=== PATIENT | male | born 1980 | race Caucasian/White ===

== ENCOUNTER → 2016-05-03 | Outpatient (CLI) | payer OTHER ==
[2016-05-04 09:48] LABS: CONTROL LINE INT CTR LINE PRESENT; HIV SCRN NEGATIVE (NEGATIVE); HIV SCRN1 NEGATIVE (NEGATIVE)
== END ==
LOC: M LAB 15:10
PROVIDERS: ATTEND Internal Medicine Infectious Disease
DX: Z77.21 Contact with and (suspected) exposure to potentially hazardous body fluids (principal)

== ENCOUNTER 2016-05-06 18:44 | Emergency (ER) | payer OTHER ==
--- NOTE | 2016-05-06 20:34 | EDDOCDS ---
Physician Documentation [facility] Name: Jc Mueller Age: 36 yrs Sex: Male : 1980 Arrival Date: 05/06/2016 Time: 18:44 Bed I8 / 16 Private MD: [facility] Disposition: 05/06/16 20:24 Discharged to Home/Self Care. Impression: Contusion of right knee. - Condition is Stable. - Medication Reconciliation, Local Pharmacy Hours form. - Follow up: [facility]; When: Call to arrange an appointment; Reason: Recheck today's complaints. - Problem is new. - Symptoms have improved. Historical: - Allergies: SULFA (SULFONAMIDES); - Home Meds: 1. Plavix 75 mg Oral tab 1 tab once daily (Last dose: 05/05/2016) 2. atorvastatin 20 mg oral tab 1 tab once daily 3. aspirin 81 mg Oral TbEC 1 tab once daily 4. Lipitor 10 mg Oral tab 1 tab once daily - PMHx: [place]; back injury while [place]; Hypertension; - PSHx: none; - Social history: Smoking status: Patient uses tobacco products, current every day smoker. No barriers to communication noted, The patient speaks fluent Syriac. - Family history: Not pertinent. - : The pt / caregiver states he / she is on anticoagulants: Plavix. Home medication list is obtained from the patient. - Exposure Risk Screening:: None identified. Vital Signs: 05/06 18:46 BP 161 / 96 RA Sitting (auto/lg); Pulse 99; Resp 18; Temp 97.3(O); Pulse Ox 97% on R/A; rs6 Weight 79.38 kg / 175 lbs (R); Height 5 ft. 7 in. (170.18 cm) (R); Pain 4/10; 18:46 Body Mass Index 27.41 (79.38 kg, 170.18 cm) rs6 MDM: 19:50 Knee, Complete Ordered. EDMS Signatures: Dispatcher [employer] EDRosaura Hadley, RN RN Derek Rodriguez DO DO cs11 Valentina Meza RN RN ms18 MTDD
--- NOTE | 2016-05-06 20:34 | EDDOCDS ---
Nurse's Notes [facility] Name: Jc Mueller Age: 36 yrs Sex: Male : 1980 Arrival Date: 05/06/2016 Time: 18:44 Bed I8 / 16 Private MD: [facility] [place] Diagnosis: Contusion of right knee Presentation: 05/06 18:48 Presenting complaint: Patient states: that he was chasing a person and [place] [place]. Pt report pain R knee and R hand. Adult Sepsis Screening: The patient does not have new or worsening altered mentation. Patient's respiratory rate is less than 22. Systolic blood pressure is greater than 100. Patient has a qSOFA score of 0- Negative Sepsis Screen. Suicide/Homicide risk assessment- the patient denies having any suicidal and/or homicidal ideations and does not present with any other emotional, behavioral or mental health complaints. 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 Transition of care: patient was not received from another setting of care. 18:48 Acuity: DOMINIQUE Level 4 ms18 18:48 Method Of Arrival: Walkin/Carried/Asstd ms18 Triage Assessment: 18:50 General: Appears in no apparent distress, comfortable, Behavior is appropriate for age, ms18 cooperative. Pain: Location: right knee Pain currently is 4 out of 10 on a pain scale. HIV screening NA for this visit Offered previously. Neurological: No deficits noted. Respiratory: No deficits noted. Derm: Skin is pink, warm & dry. Musculoskeletal: Range of motion intact in all extremities. Historical: - Allergies: SULFA (SULFONAMIDES); - Home Meds: 1. Plavix 75 mg Oral tab 1 tab once daily (Last dose: 05/05/2016) 2. atorvastatin 20 mg oral tab 1 tab once daily 3. aspirin 81 mg Oral TbEC 1 tab once daily 4. Lipitor 10 mg Oral tab 1 tab once daily - PMHx: [place]; [place] injury [place]; Hypertension; - PSHx: none; - Social history: Smoking status: Patient uses tobacco products, current every day smoker. No barriers to communication noted, The patient speaks fluent Vietnamese. - Family history: Not pertinent. - : The pt / caregiver states he / she is on anticoagulants: Plavix. Home medication list is obtained from the patient. - Exposure Risk Screening:: None identified. Screenin:26 Screening information is obtained from the patient. Fall risk: No risks identified. mcp Assistance ADL's: requires no assistance with activities of daily living. Abuse/DV Screen: The patient / caregiver reports he/she is: not in a situation that causes fear, pain or injury. Nutritional screening: No deficits noted. Advance Directives: There is no active DNR order. home support is adequate. Assessment: 20:25 General: Appears uncomfortable, Behavior is cooperative. Pain: Location: right hand and mcp right leg Pain currently is 6 out of 10 on a pain scale. Neurological: No deficits noted. Respiratory: Airway is patent Respiratory effort is even, unlabored. Derm: Skin is pink, warm & dry. Musculoskeletal: Circulation, motion, and sensation intact. Injury Description: Abrasion sustained to right knee is bleeding. Vital Signs: 18:46 BP 161 / 96 RA Sitting (auto/lg); Pulse 99; Resp 18; Temp 97.3(O); Pulse Ox 97% on R/A; rs6 Weight 79.38 kg (R); Height 5 ft. 7 in. (170.18 cm) (R); Pain 4/10; 18:46 Body Mass Index 27.41 (79.38 kg, 170.18 cm) [facility] Vitals: 18:46 Log In Time: May 06, 2016 at 18:46. [facility] ED Course: 18:46 Patient visited by Kate Miller PCA. rs6 18:46 [facility] is Private Physician. rs6 18:46 Patient moved to Waiting rs6 18:47 Patient visited by Kate Miller PCA. rs6 18:47 Patient moved to Pre RCE rs6 18:48 Triage Initiated ms18 19:45 Derek Cummins DO is Attending Physician. cs11 19:45 Patient moved to I8 / 16 jb5 19:46 Patient visited by Derek Cummins DO. cs11 20:23 [facility] is Referral Physician. cs11 20:26 No IV's were initiated during this patient's visit. No procedures done that require mcp assistance. Wound care to abrasion, located on right knee was cleaned with soap and water, dressed with Neosporin, band aid, Patient tolerated well. 20:27 Patient visited by Rosaura Ha RN. [facility] 20:27 The patient / caregiver is instructed regarding the plan of care and ED course. Patient mcp has correct armband on for positive identification. Bed in low position. Call light in reach. Order Results: There are currently no results for this order. Outcome: 20:24 Discharge ordered by Provider. cs11 20:32 Discharge Assessment: patient administered narcotics - no. The following High Risk [facility] Discharge criteria are identified: None. Discharged to home ambulatory. Condition: stable. Discharge instructions given to patient, Instructed on discharge instructions, follow up and referral plans. Demonstrated understanding of instructions, Pt was receptive of discharge instructions/ teaching. No special radiology studies were completed. Property sent home with patient. 20:33 Patient left the ED. [facility] Signatures: Rosaura Ha, RN RN Shelia Lopez, TOWER EQUIPMENT INSTALLER TOWER EQUIPMENT INSTALLER jb5 Derek Cummins, DO cs11 Valentina Meza RN RN ms18 Kate Miller, TOWER EQUIPMENT INSTALLER TOWER EQUIPMENT INSTALLER rs6 MTDD
--- NOTE | 2016-05-07 08:25 | REP ---
RIGHT KNEE SERIES: Five views. HISTORY: Trauma. FINDINGS: Five views of the right knee demonstrate soft tissue swelling along the course of the patellar tendon on lateral radiograph. No fracture, subluxation or joint effusion is seen. Clothing artifact is noted over the distal thigh. IMPRESSION: Soft-tissue swelling about the patellar tendon. Otherwise negative right knee radiographs. Signed by Kwasi Riley MD 05/07/2016 10:06 A
--- NOTE | 2016-05-08 21:34 | EDDOCDS ---
Nurse's Notes [facility] Name: Jc Mueller Age: 36 yrs Sex: Male : 1980 Arrival Date: 05/06/2016 Time: 18:44 Bed I8 / 16 Private MD: [facility], [place] Diagnosis: Contusion of right knee Presentation: 05/06 18:48 Presenting complaint: Patient states: that he was chasing a person and [place] [place]. Pt report pain R knee and R hand. Adult Sepsis Screening: The patient does not have new or worsening altered mentation. Patient's respiratory rate is less than 22. Systolic blood pressure is greater than 100. Patient has a qSOFA score of 0- Negative Sepsis Screen. Suicide/Homicide risk assessment- the patient denies having any suicidal and/or homicidal ideations and does not present with any other emotional, behavioral or mental health complaints. Status: Patient is not a public service representative or dependent. Transition of care: patient was not received from another setting of care. 18:48 Acuity: DOMINIQUE Level 4 ms18 18:48 Method Of Arrival: Walkin/Carried/Asstd ms18 Triage Assessment: 18:50 General: Appears in no apparent distress, comfortable, Behavior is appropriate for age, ms18 cooperative. Pain: Location: right knee Pain currently is 4 out of 10 on a pain scale. HIV screening NA for this visit Offered previously. Neurological: No deficits noted. Respiratory: No deficits noted. Derm: Skin is pink, warm & dry. Musculoskeletal: Range of motion intact in all extremities. Historical: - Allergies: SULFA (SULFONAMIDES); - Home Meds: 1. Plavix 75 mg Oral tab 1 tab once daily (Last dose: 05/05/2016) 2. atorvastatin 20 mg oral tab 1 tab once daily 3. aspirin 81 mg Oral TbEC 1 tab once daily 4. Lipitor 10 mg Oral tab 1 tab once daily - PMHx: [place]; back injury while [place]; Hypertension; - PSHx: none; - Social history: Smoking status: Patient uses tobacco products, current every day smoker. No barriers to communication noted, The patient speaks fluent Yakut. - Family history: Not pertinent. - : The pt / caregiver states he / she is on anticoagulants: Plavix. Home medication list is obtained from the patient. - Exposure Risk Screening:: None identified. Screenin:26 Screening information is obtained from the patient. Fall risk: No risks identified. mcp Assistance ADL's: requires no assistance with activities of daily living. Abuse/DV Screen: The patient / caregiver reports he/she is: not in a situation that causes fear, pain or injury. Nutritional screening: No deficits noted. Advance Directives: There is no active DNR order. home support is adequate. Assessment: 20:25 General: Appears uncomfortable, Behavior is cooperative. Pain: Location: right hand and mcp right leg Pain currently is 6 out of 10 on a pain scale. Neurological: No deficits noted. Respiratory: Airway is patent Respiratory effort is even, unlabored. Derm: Skin is pink, warm & dry. Musculoskeletal: Circulation, motion, and sensation intact. Injury Description: Abrasion sustained to right knee is bleeding. Vital Signs: 18:46 BP 161 / 96 RA Sitting (auto/lg); Pulse 99; Resp 18; Temp 97.3(O); Pulse Ox 97% on R/A; rs6 Weight 79.38 kg (R); Height 5 ft. 7 in. (170.18 cm) (R); Pain 4/10; 18:46 Body Mass Index 27.41 (79.38 kg, 170.18 cm) [facility] Vitals: 18:46 Log In Time: May 06, 2016 at 18:46. [facility] ED Course: 18:46 Patient visited by Kate Miller PCA. rs6 18:46 [facility] is Private Physician. rs6 18:46 Patient moved to Waiting rs6 18:47 Patient visited by Kate Miller PCA. rs6 18:47 Patient moved to Pre RCE rs6 18:48 Triage Initiated ms18 19:45 Derek Cummins DO is Attending Physician. cs11 19:45 Patient moved to I8 / 16 jb5 19:46 Patient visited by Derek Cummins DO. cs11 20:23 [facility] is Referral Physician. cs11 20:26 No IV's were initiated during this patient's visit. No procedures done that require mcp assistance. Wound care to abrasion, located on right knee was cleaned with soap and water, dressed with Neosporin, band aid, Patient tolerated well. 20:27 Patient visited by Rosaura Ha RN. [facility] 20:27 The patient / caregiver is instructed regarding the plan of care and ED course. Patient mcp has correct armband on for positive identification. Bed in low position. Call light in reach. 20:36 [facility] Payment Agreement was scanned into [employer] and attached to record. jp5 22:43 T-Sheet-- Draft Copy was scanned into [employer] and attached to record. klr 05/07 08:49 Knee, Complete Returned. EDVT Order Results: Radiology Order: Knee, Complete Test: Knee, Complete REASON FOR EXAMINATION: Trauma; RIGHT KNEE SERIES: Five views.; ; HISTORY: Trauma.; ; FINDINGS: Five views of the right knee demonstrate soft tissue swelling along; the course of the patellar tendon on lateral radiograph. No fracture,; subluxation or joint effusion is seen. Clothing artifact is noted over the; distal thigh.; ; IMPRESSION:; ; Soft-tissue swelling about the patellar tendon. Otherwise negative right knee; radiographs.; ; ; Signed by; Kwasi Riley MD 05/07/2016 10:06 A; Outcome: 05/06 20:24 Discharge ordered by Provider. 11 20:32 Discharge Assessment: patient administered narcotics - no. The following High Risk [facility] Discharge criteria are identified: None. Discharged to home ambulatory. Condition: stable. Discharge instructions given to patient, Instructed on discharge instructions, follow up and referral plans. Demonstrated understanding of instructions, Pt was receptive of discharge instructions/ teaching. No special radiology studies were completed. Property sent home with patient. 20:33 Patient left the ED. [facility] Signatures: Dispatcher [facility] Rosaura Ha, CRISTHIAN RN [facility] Shelia Wright, BELT WORKER BELT WORKER jb5 Derek Cummins DO DO cs11 Valentina Meza RN RN ms18 Kate Miller, BELT WORKER BELT WORKER rs6 Lynn Rinaldi jp5 Radha Dong Chart Complete MTDD
--- NOTE | 2016-05-08 21:34 | EDDOCDS ---
Physician Documentation [facility] Name: Jc Mueller Age: 36 yrs Sex: Male : 1980 Arrival Date: 05/06/2016 Time: 18:44 Bed I8 / 16 Private MD: [facility] Disposition: 05/06/16 20:24 Discharged to Home/Self Care. Impression: Contusion of right knee. - Condition is Stable. - Medication Reconciliation, Local Pharmacy Hours form. - Follow up: [facility]; When: Call to arrange an appointment; Reason: Recheck today's complaints. - Problem is new. - Symptoms have improved. Historical: - Allergies: SULFA (SULFONAMIDES); - Home Meds: 1. Plavix 75 mg Oral tab 1 tab once daily (Last dose: 05/05/2016) 2. atorvastatin 20 mg oral tab 1 tab once daily 3. aspirin 81 mg Oral TbEC 1 tab once daily 4. Lipitor 10 mg Oral tab 1 tab once daily - PMHx: [place]; [place] injury while [place]; Hypertension; - PSHx: none; - Social history: Smoking status: Patient uses tobacco products, current every day smoker. No barriers to communication noted, The patient speaks fluent Tam[place]ight. - Family history: Not pertinent. - : The pt / caregiver states he / she is on anticoagulants: Plavix. Home medication list is obtained from the patient. - Exposure Risk Screening:: None identified. Vital Signs: 05/06 18:46 BP 161 / 96 RA Sitting (auto/lg); Pulse 99; Resp 18; Temp 97.3(O); Pulse Ox 97% on R/A; rs6 Weight 79.38 kg / 175 lbs (R); Height 5 ft. 7 in. (170.18 cm) (R); Pain 4/10; 18:46 Body Mass Index 27.41 (79.38 kg, 170.18 cm) rs6 MDM: 19:50 Knee, Complete Ordered. EDLA 20:36 [facility] Payment Agreement was scanned into [email or web address] and attached to record. jp5 20:36 Financial registration complete. jp5 22:43 T-Sheet-- Draft Copy was scanned into [email or web address] and attached to record. klr Signatures: Dispatcher [employer] EDMS Ha, CRISTHIAN Kaplan RN, mcp, Craig, DO DO cs11 Valentina Meza RN RN ms18 Lynn Rinaldi jp5 Radha Dong The chart was reviewed and I authenticate all verbal orders and agree with the evaluation and treatment provided.Attachments: 20:36 [facility] Payment Agreement jp5 22:43 T-Sheet-- Draft Copy klr Chart Complete MTDD
--- NOTE | 2016-05-08 21:34 | EDDOCDS ---
Physician Documentation [facility] Name: Jc Mueller Age: 36 yrs Sex: Male : 1980 Arrival Date: 05/06/2016 Time: 18:44 Bed I8 / 16 Private MD: [facility] Disposition: 05/06/16 20:24 Discharged to Home/Self Care. Impression: Contusion of right knee. - Condition is Stable. - Medication Reconciliation, Local Pharmacy Hours form. - Follow up: [facility]; When: Call to arrange an appointment; Reason: Recheck today's complaints. - Problem is new. - Symptoms have improved. Historical: - Allergies: SULFA (SULFONAMIDES); - Home Meds: 1. Plavix 75 mg Oral tab 1 tab once daily (Last dose: 05/05/2016) 2. atorvastatin 20 mg oral tab 1 tab once daily 3. aspirin 81 mg Oral TbEC 1 tab once daily 4. Lipitor 10 mg Oral tab 1 tab once daily - PMHx: [place]; back injury while [place]; Hypertension; - PSHx: none; - Social history: Smoking status: Patient uses tobacco products, current every day smoker. No barriers to communication noted, The patient speaks fluent Armenian. - Family history: Not pertinent. - : The pt / caregiver states he / she is on anticoagulants: Plavix. Home medication list is obtained from the patient. - Exposure Risk Screening:: None identified. Vital Signs: 05/06 18:46 BP 161 / 96 RA Sitting (auto/lg); Pulse 99; Resp 18; Temp 97.3(O); Pulse Ox 97% on R/A; rs6 Weight 79.38 kg / 175 lbs (R); Height 5 ft. 7 in. (170.18 cm) (R); Pain 4/10; 18:46 Body Mass Index 27.41 (79.38 kg, 170.18 cm) rs6 MDM: 19:50 Knee, Complete Ordered. EDOK 20:36 [facility] Payment Agreement was scanned into [employer] and attached to record. jp5 20:36 Financial registration complete. jp5 22:43 T-Sheet-- Draft Copy was scanned into [employer] and attached to record. klr Signatures: Dispatcher [employer] EDMS Ha, CRISTHIAN Kaplan RN, mcp, Craig, DO DO cs11 Valentina Meza RN RN ms18 Lynn Rinaldi jp5 Radha Dong The chart was reviewed and I authenticate all verbal orders and agree with the evaluation and treatment provided.Attachments: 20:36 [facility] Payment Agreement jp5 22:43 T-Sheet-- Draft Copy klr Chart Complete MTDD
== END 2016-05-06 20:33 | disposition home or self-care (01) ==
LOC: M ED 18:44
DX: S80.02XA Contusion of left knee, initial encounter (principal); W19.XXXA Unspecified fall, initial encounter; Y92.89 Other specified places as the place of occurrence of the external cause; Y93.89 Activity, other specified; Y99.0 Civilian activity done for income or pay; I25.2 Old myocardial infarction; I10 Essential (primary) hypertension; F17.210 Nicotine dependence, cigarettes, uncomplicated; Z79.02 Long term (current) use of antithrombotics/antiplatelets; Z79.82 Long term (current) use of aspirin; Z79.899 Other long term (current) drug therapy; Z88.2 Allergy status to sulfonamides

== ENCOUNTER → 2016-09-13 | Outpatient (CLI) | payer OTHER ==
[2016-09-13 15:29] LABS: ALT/SGPT 34 U/L (12-78); AST/SGOT 22 U/L (15-37); CHOLESTEROL LEVEL 212 MG/DL (<200); TRIGLYCERIDES LEVEL 407 MG/DL (<150)
== END ==
LOC: M LAB 14:25
PROVIDERS: ATTEND Internal Medicine Cardiovascular Disease
DX: I25.10 Atherosclerotic heart disease of native coronary artery without angina pectoris (principal); E78.01 Familial hypercholesterolemia

== ENCOUNTER 2017-03-13 13:28 | Emergency (ER) | payer OTHER ==
[~2017-03-13] VITALS: Ht 170.2 cm; Wt 83.9 kg
[2017-03-13] MEDS ORDERED: ASPIRIN 325 MG TAB PO ONE (13:45)
[2017-03-13] MEDS ORDERED: MORPHINE 4 MG/ML 1ML SYRINGE IV ONE (13:45)
[2017-03-13] MEDS ORDERED: HEPARIN DRIP 25,000 UNITS in APPROPRIATE DILUENT 1 EA IV SCH (13:55)
[2017-03-13 13:57] LABS: BASO # 0.1 10^3/uL (0.0-0.2); BASO % 0.4 % (0.0-1.0); EOS # 0.2 10^3/uL (0.0-0.50); EOS % 0.8 % (0.0-3.0); IMMATURE GRANULOCYTE % 1.2 % (0-0); LYMPH # 1.7 10^3/uL (1.5-4.5); LYMPH % 7.6 % (24.0-44.0); MEAN CORPUSCULAR HGB CONC 34.8 g/dl (32.0-36.5); MEAN CORPUSCULAR VOLUME 83.3 fl (80.0-96.0); MONO # 1.3 10^3/uL (0.0-0.8); MONO % 5.8 % (0.0-5.0); NEUTROPHILS # 18.8 10^3/uL (1.8-7.7); NEUTROPHILS % 84.2 % (36.0-66.0); PLATELET COUNT, AUTOMATED 316 10^3/uL (150-450); RED CELL DISTRIBUTION WIDTH 13.1 % (11.5-14.5); WHITE BLOOD COUNT 22.4 10^3/uL (4.0-10.0)
[2017-03-13] MEDS ORDERED: HEPARIN SOD (PORCINE) 5000 UNITS/ML VIAL IV ONE (14:00)
[2017-03-13] MEDS ORDERED: TENECTEPLASE 50 MG KIT (TNKase)(J3101) IV ONE (14:00)
[2017-03-13] MEDS ORDERED: CLOPIDOGREL 300 MG TAB (PLAVIX) PO ONE (14:00)
[2017-03-13] MEDS ORDERED: MORPHINE 4 MG/ML 1ML SYRINGE IV PRN (14:00)
[2017-03-13] MEDS ORDERED: LISI-542 PO (14:03)
[2017-03-13] MEDS ORDERED: D 101TAB PO (14:03)
[2017-03-13] MEDS ORDERED: ATOR40TA75 PO (14:03)
[2017-03-13] MEDS ORDERED: POTA20TA FT (14:03)
[2017-03-13] MEDS ORDERED: CLOP75TA2 PO (14:03)
[2017-03-13] MEDS ORDERED: CETI10CH PO (14:03)
[2017-03-13] MEDS ORDERED: METO25TA4 PO (14:03)
[2017-03-13 14:11] LABS: INR 0.92
[2017-03-13 14:15] VITALS: BP 166/111
--- NOTE | 2017-03-13 14:15 | REP ---
Portable chest x-ray: Sitting AP view. History: Chest pain. No comparison studies. Findings: EKG monitoring electrodes overlie the chest. The heart is not enlarged. Left hemidiaphragm is very slightly elevated. Pulmonary vasculature is not increased. Lung smith are clear. Nipple silhouette projects at the right base. Impression: Slightly elevated left hemidiaphragm. Otherwise no acute disease. Signed by Kwasi Riley MD 03/13/2017 03:04 P
[2017-03-13 14:19] LABS: ALBUMIN 3.9 GM/DL (3.2-5.2); ALKALINE PHOSPHATASE 64 U/L (45-117); ALT/SGPT 23 U/L (12-78); ANION GAP 12 MEQ/L (8-16); AST/SGOT 27 U/L (7-37); BILIRUBIN,DIRECT < 0.1 MG/DL (0.0-0.2); BILIRUBIN,TOTAL 0.4 MG/DL (0.2-1.0); BLOOD UREA NITROGEN 11 MG/DL (7-18); CALCIUM LEVEL 9.2 MG/DL (8.5-10.1); CARBON DIOXIDE LEVEL 20 MEQ/L (21-32); CHLORIDE LEVEL 105 MEQ/L (98-107); CREATININE FOR GFR 1.04 MG/DL (0.70-1.30); FREE T4 1.05 NG/DL (0.76-1.46); GLOMERULAR FILTRATION RATE > 60.0 (>60); GLUCOSE, FASTING 135 MG/DL (70-105); POTASSIUM SERUM 3.8 MEQ/L (3.5-5.1); SODIUM LEVEL 137 MEQ/L (136-145); TOTAL PROTEIN 7.8 GM/DL (6.4-8.2)
--- NOTE | 2017-03-13 19:38 | ECGEPIP ---
Stationary ECG Study [facility] - ED Test Date: 2017-03-13 Pat Name: WINNIE CRONIN Department: Room: - Gender: M Pin Inserter: JAYLIN : 1980 Requested By: Zen Toledo Order Number: [id number] Reading MD: Dariana Dorado Measurements Intervals [place] Rate: 78 P: 48 [place]: 159 QRS: 35 QRSD: 107 T: 38 QT: 350 QTc: 401 Interpretive Statements SINUS RHYTHM POSSIBLE RIGHT VENTRICULAR CONDUCTION DELAY ANTERIOR MYOCARDIAL INFARCTION, ACUTE TN, CLINICAL CORRELATION NO PRIOR FOR COMPARISON Electronically Signed On 03-13-2017 19:38:14 EST by Dariana Dorado
== END 2017-03-13 14:18 | disposition short-term general hospital (02) ==
LOC: EDBD 13:28 → M ED 13:28
DX: I21.3 ST elevation (STEMI) myocardial infarction of unspecified site (principal); I10 Essential (primary) hypertension; F17.210 Nicotine dependence, cigarettes, uncomplicated; Z79.899 Other long term (current) drug therapy; Z88.1 Allergy status to other antibiotic agents; Z88.2 Allergy status to sulfonamides; Z95.5 Presence of coronary angioplasty implant and graft; Z82.49 Family history of ischemic heart disease and other diseases of the circulatory system
CPT/HCPCS: 71010; 80048; 80076; 82550; 82553; 83690; 83880; 84439; 84443; 85025; 85610; 85730; 93005; 93041; 94760; 96374; 96375; 99285; J3101

== ENCOUNTER 2018-11-19 15:57 | Emergency (ER) | payer OTHER ==
[~2018-11-19] VITALS: Ht 170.2 cm; Wt 82.0 kg
[~2018-11-19 15:57] MED LIST: ATOR40TA75 PO; CETI10CH PO; CLOP75TA2 PO; KLOR20TA42 FT; LISI-542 PO; METO25TA4 PO; VITA-144 PO
[2018-11-19 16:31] LABS: BASO # 0.1 10^3/uL (0.0-0.2); BASO % 0.7 % (0.0-1.0); EOS # 0.5 10^3/uL (0.0-0.50); EOS % 4.6 % (0.0-3.0); HEMATOCRIT 41.1 % (42.0-52.0); LYMPH # 2.6 10^3/uL (1.5-4.5); MEAN CORPUSCULAR HEMOGLOBIN 29.7 pg (27.0-33.0); MEAN CORPUSCULAR HGB CONC 34.1 g/dl (32.0-36.5); MEAN CORPUSCULAR VOLUME 87.1 fl (80.0-96.0); MONO # 1.1 10^3/uL (0.0-0.8); MONO % 9.9 % (0.0-5.0); NEUTROPHILS # 6.8 10^3/uL (1.8-7.7); NEUTROPHILS % 61.1 % (36.0-66.0); PLATELET COUNT, AUTOMATED 230 10^3/uL (150-450); RED BLOOD COUNT 4.72 10^6/uL (4.30-6.10); WHITE BLOOD COUNT 11.2 10^3/uL (4.0-10.0)
--- NOTE | 2018-11-19 16:44 | REP ---
Portable chest, 04:25 p.m., single AP view with the patient sitting: Comparison is 03/13/2017. The lung smith are clear. Cardiac size is normal. The radha, mediastinum, and skeletal structures are unremarkable. Impression: Negative portable chest. Electronically Signed by Deep Santana MD 11/19/2018 04:36 P
[2018-11-19 16:56] LABS: BLOOD UREA NITROGEN 17 MG/DL (7-18); CALCIUM LEVEL 9.1 MG/DL (8.5-10.1); CARBON DIOXIDE LEVEL 24 MEQ/L (21-32); CHLORIDE LEVEL 109 MEQ/L (98-107); CK-MB VALUE MASS 1.2 NG/ML (<3.6); CPK CREATINE PHOSPHOKINASE 188 U/L (39-308); CREATININE FOR GFR 0.92 MG/DL (0.70-1.30); GLOMERULAR FILTRATION RATE > 60.0 (>60); GLUCOSE, FASTING 106 MG/DL (70-100); MB/CK RELATIVE INDEX 0.64 (< OR =4); SODIUM LEVEL 141 MEQ/L (136-145); TROPONIN I 0.28 NG/ML (< 0.10)
[2018-11-19] MEDS ORDERED: HEPARIN DRIP 25,000 UNITS in APPROPRIATE DILUENT 1 EA IV SCH (17:35)
[2018-11-19] MEDS ORDERED: CLOPIDOGREL 300 MG TAB (PLAVIX) PO ONE (17:45)
[2018-11-19] MEDS ORDERED: HEPARIN SOD (PORCINE) 5000 UNITS/ML VIAL IV ONE (17:45)
[2018-11-19 17:56] LABS: PROTHROMBIN TIME 12.9 SECONDS (11.8-14.0)
[2018-11-19 17:57] LABS: PARTIAL THROMBOPLASTIN TIME 30.9 SECONDS (25.0-38.4)
[2018-11-19 18:51] VITALS: BP 130/94
--- NOTE | 2018-11-20 10:29 | ECGEPIP ---
[facility] - ED Test Date: 2018-11-19 Pat Name: WINNIE CRONIN Department: Room: - Gender: Male Filter Filler: favio : 1980 Requested By: JEROME Ocampo Order Number: [id number] Reading MD: Dariana Dorado Measurements Intervals [place] Rate: 70 P: 13 MD: 136 QRS: -14 QRSD: 106 T: 109 QT: 384 QTc: 416 Interpretive Statements SINUS RHYTHM LEFT VENTRICULAR HYPERTROPHY AND ST-T CHANGE ANTEROSEPTAL MYOCARDIAL INFARCTION, PROBABLY OLD, SAME DISTRIBUTION 03/13/17 S STEMI, CLINICAL CORRELATION Electronically Signed on 11-20-2018 10:29:25 EDT by Dariana Dorado
== END 2018-11-19 18:55 | disposition home or self-care (01) ==
LOC: M ED 15:57
DX: I21.4 Non-ST elevation (NSTEMI) myocardial infarction (principal); I10 Essential (primary) hypertension; E78.5 Hyperlipidemia, unspecified; F33.9 Major depressive disorder, recurrent, unspecified; F41.9 Anxiety disorder, unspecified; Z95.5 Presence of coronary angioplasty implant and graft; Z88.1 Allergy status to other antibiotic agents; Z88.2 Allergy status to sulfonamides; F17.210 Nicotine dependence, cigarettes, uncomplicated

== ENCOUNTER → 2019-02-05 | Outpatient (CLI) | payer OTHER ==
[2019-02-05 10:40] LABS: CHOLESTEROL RISK RATIO 5.931 (<5)
== END ==
LOC: M LAB 09:35
PROVIDERS: ATTEND Internal Medicine Cardiovascular Disease
DX: R06.02 Shortness of breath (principal)

== ENCOUNTER 2022-12-19 05:32 | Emergency (ER) | payer OTHER ==
[~2022-12-19] VITALS: Ht 170.2 cm; Wt 85.5 kg
[~2022-12-19 05:32] MED LIST changes: -KLOR20TA42 FT; -LISI-542 PO; +LISI5TAB11 PO; +POTA-141 FT
[2022-12-19 05:55] LABS: BASO % 0.3 % (0.0-1.0); EOS # 0.3 10^3/uL (0.0-0.5); HEMATOCRIT 37.7 % (42.0-52.0); HEMOGLOBIN 12.7 g/dl (13.5-17.5); LYMPH # 1.7 10^3/uL (1.5-5.0); LYMPH % 12.6 % (24.0-44.0); MEAN CORPUSCULAR HEMOGLOBIN 27.1 pg (27.0-33.0); MEAN CORPUSCULAR HGB CONC 33.7 g/dl (32.0-36.5); MEAN CORPUSCULAR VOLUME 80.4 fl (80.0-96.0); MONO % 7.6 % (2.0-8.0); NEUTROPHILS # 10.2 10^3/uL (1.5-8.5); NEUTROPHILS % 76.9 % (36.0-66.0); PLATELET COUNT, AUTOMATED 241 10^3/uL (150-450); RED BLOOD COUNT 4.69 10^6/uL (4.30-6.10); WHITE BLOOD COUNT 13.3 10^3/uL (4.0-10.0)
[2022-12-19] MEDS ORDERED: METF10004 PO (06:07)
[2022-12-19] MEDS ORDERED: cholesterol (06:07)
[2022-12-19] MEDS ORDERED: OMEG10002 PO (06:07)
[2022-12-19] MEDS ORDERED: VALS40TA9 PO (06:07)
[2022-12-19 06:26] LABS: BLOOD UREA NITROGEN 25 MG/DL (9-23); CALCIUM LEVEL 8.6 MG/DL (8.5-10.1); CARBON DIOXIDE LEVEL 21 MMOL/L (20-31); CHLORIDE LEVEL 108 MMOL/L (98-107); CK-MB VALUE MASS 1.4 NG/ML (<3.6); CREATININE FOR GFR 0.71 MG/DL (0.70-1.30); GLOMERULAR FILTRATION RATE > 60.0 (>60); GLUCOSE, FASTING 126 MG/DL (60-100); POTASSIUM SERUM 3.7 MMOL/L (3.5-5.1); SODIUM LEVEL 138 MMOL/L (136-145)
[2022-12-19 06:31] LABS: CPK CREATINE PHOSPHOKINASE 152 U/L (46-171); MB/CK RELATIVE INDEX 0.92 (< OR =4)
[2022-12-19] MEDS ORDERED: NITROGLYCERIN 0.4MG SUBL TABLET SL PRN (06:40)
[2022-12-19] MEDS ORDERED: ONDANSETRON 4MG 2ML VIAL IV ONE (06:40)
[2022-12-19] MEDS ORDERED: MORPHINE 4 MG/ML 1ML VIAL IV PRN (06:40)
[2022-12-19] MEDS ORDERED: ISOVUE-370 76% 100ML VIAL As Ordered ONE (06:57)
[2022-12-19 07:27] LABS: CK-MB VALUE MASS 1.9 NG/ML (<3.6)
[2022-12-19 07:32] LABS: MB/CK RELATIVE INDEX 1.19 (< OR =4)
[2022-12-19] MEDS ORDERED: HEPARIN SOD (PORCINE) 5000UNITS/ML 1ML VIAL/SYRINGE IV ONE (07:40)
[2022-12-19] MEDS ORDERED: NITROGLYCERIN 2% OINT 1 GM *U/D* PKT TOP ONE (08:00)
[2022-12-19] MEDS ORDERED: HEPARIN DRIP 25,000 UNITS in IV 1 EA IV SCH (08:00)
[2022-12-19 08:03] LABS: INR 0.96; PROTHROMBIN TIME 12.5 SECONDS (12.5-14.5)
[2022-12-19 08:05] LABS: PARTIAL THROMBOPLASTIN TIME 28.9 SECONDS (24.8-34.2)
[2022-12-19 08:08] VITALS: BP 139/86
[2022-12-19] MEDS ORDERED: NITROGLYCERIN/D5W 100MCG/ML 25 MG in IV 1 EA IV SCH (09:05)
[2022-12-19] MEDS ORDERED: FUROSEMIDE 40MG/4ML VIAL IV ONE (09:30)
[2022-12-19 09:39] LABS: CK-MB VALUE MASS 3.8 NG/ML (<3.6)
[2022-12-19 09:41] LABS: MB/CK RELATIVE INDEX 2.22 (< OR =4)
[2022-12-19 10:00] VITALS: BP 136/82; TEMP 96.5; O2SAT 97
== END 2022-12-19 10:07 | disposition short-term general hospital (02) ==
LOC: M ED 05:32 → EDBD 05:32 → M ED 10:07
DX: I21.4 Non-ST elevation (NSTEMI) myocardial infarction (principal); I51.7 Cardiomegaly; I45.81 Long QT syndrome; I25.2 Old myocardial infarction; I10 Essential (primary) hypertension; E78.5 Hyperlipidemia, unspecified; F17.200 Nicotine dependence, unspecified, uncomplicated; Z86.79 Personal history of other diseases of the circulatory system; Z88.2 Allergy status to sulfonamides; Z79.4 Long term (current) use of insulin; Z79.811 Long term (current) use of aromatase inhibitors; Z79.899 Other long term (current) drug therapy
CPT/HCPCS: 36415; 71045; 71275; 80048; 82550; 82553; 83880; 84484; 85025; 85610; 85730; 87486; 87581; 87633; 87798; 93005; 93041; 94760; 96365; 96366; 96375; 99285; J1940; J2405; Q9967

== ENCOUNTER 2024-07-10 13:15 | Emergency (ER) | payer OTHER ==
[~2024-07-10] VITALS: Ht 170.2 cm; Wt 82.0 kg
[~2024-07-10 13:15] MED LIST changes: +METF10004 PO; +OMEG10002 PO; +VALS40TA9 PO; +cholesterol
[2024-07-10 13:58] LABS: BASO % 0.6 % (0.0-1.0); EOS # 0.1 10^3/uL (0.0-0.5); EOS % 0.7 % (0.0-3.0); HEMATOCRIT 35.4 % (42.0-52.0); HEMOGLOBIN 11.2 g/dl (13.5-17.5); LYMPH # 0.9 10^3/uL (1.5-5.0); LYMPH % 13.1 % (24.0-44.0); MEAN CORPUSCULAR HEMOGLOBIN 30.2 pg (27.0-33.0); MEAN CORPUSCULAR HGB CONC 31.6 g/dl (32.0-36.5); MEAN CORPUSCULAR VOLUME 95.4 fl (80.0-96.0); MONO # 0.7 10^3/uL (0.0-0.8); MONO % 10.4 % (2.0-8.0); NEUTROPHILS % 74.8 % (36.0-66.0); PLATELET COUNT, AUTOMATED 201 10^3/uL (150-450); RED BLOOD COUNT 3.71 10^6/uL (4.30-6.10); WHITE BLOOD COUNT 6.7 10^3/uL (4.0-10.0)
[2024-07-10] MEDS ORDERED: CLOP75TA99 PO (14:12)
[2024-07-10 14:25] LABS: CPK CREATINE PHOSPHOKINASE 141 U/L (46-171)
[2024-07-10 14:26] LABS: ALBUMIN 3.4 G/DL (3.2-5.2); ALKALINE PHOSPHATASE 148 U/L (40-129); ALT/SGPT 95 U/L (7.0-40); AST/SGOT 102 U/L (<34); BILIRUBIN,DIRECT 0.4 MG/DL (<0.4); BILIRUBIN,TOTAL 0.9 MG/DL (0.3-1.2); BLOOD UREA NITROGEN 24 MG/DL (9-23); CALCIUM LEVEL 8.6 MG/DL (8.5-10.1); CARBON DIOXIDE LEVEL 24 MMOL/L (20-31); CHLORIDE LEVEL 105 MMOL/L (98-107); CK-MB VALUE MASS 2.9 NG/ML (<3.6); CREATININE FOR GFR 0.64 MG/DL (0.70-1.30); GLOMERULAR FILTRATION RATE > 90.0 (>60); GLUCOSE, FASTING 92 MG/DL (60-100); MB/CK RELATIVE INDEX 2.05 (< OR =4); POTASSIUM SERUM 4.1 MMOL/L (3.5-5.1); SODIUM LEVEL 137 MMOL/L (136-145); TOTAL PROTEIN 6.6 G/DL (5.7-8.2)
[2024-07-10 14:27] LABS: THYROID STIMULATING HORMONE 1.287 uIU/ML (0.55-4.78); THYROXINE (T4) 5.7 UG/DL (4.5-10.9)
[2024-07-10 14:34] VITALS: BP 142/89
[2024-07-10] MEDS: NITROGLYCERIN 2% OINT 1 GM *U/D* PKT TOP ONE (14:34)
[2024-07-10] MEDS: ASPIRIN 81MG CHEW TABLET PO ONE (14:34)
[2024-07-10] MEDS: FUROSEMIDE 40MG/4ML VIAL IV ONE (15:09)
[2024-07-10 15:26] LABS: CK-MB VALUE MASS 2.5 NG/ML (<3.6)
[2024-07-10 15:31] LABS: MB/CK RELATIVE INDEX 1.86 (< OR =4)
[2024-07-10] MEDS ORDERED: ISOVUE-370 76% 100ML VIAL As Ordered ONE (16:34)
[2024-07-10] MEDS: CLOPIDOGREL 75 MG TAB PO ONE (16:42)
[2024-07-10 17:17] LABS: RSV AMPLIFICATION NEGATIVE (NEGATIVE)
[2024-07-10 17:24] LABS: CK-MB VALUE MASS 3.4 NG/ML (<3.6)
[2024-07-10 17:25] LABS: MB/CK RELATIVE INDEX 2.55 (< OR =4)
[2024-07-10] MEDS: HEPARIN DRIP 25,000 UNITS in IV 1 EA IV SCH (18:01)
[2024-07-10] MEDS: HEPARIN SOD (PORCINE) 5000UNITS/ML 1ML VIAL/SYRINGE IV ONE (18:01)
[2024-07-10 18:30] VITALS: TEMP 97.9
[2024-07-10] MEDS: MORPHINE 2 MG/ML 1ML VIAL IV ONE (18:42)
[2024-07-10 19:00] VITALS: BP 138/81; O2SAT 99
== END 2024-07-10 19:28 | disposition short-term general hospital (02) ==
LOC: M ED 13:15
DX: I21.4 Non-ST elevation (NSTEMI) myocardial infarction (principal); J91.8 Pleural effusion in other conditions classified elsewhere; I50.22 Chronic systolic (congestive) heart failure; I25.119 Atherosclerotic heart disease of native coronary artery with unspecified angina pectoris; I25.2 Old myocardial infarction; I11.0 Hypertensive heart disease with heart failure; E78.5 Hyperlipidemia, unspecified; F41.9 Anxiety disorder, unspecified; F17.210 Nicotine dependence, cigarettes, uncomplicated; Z88.2 Allergy status to sulfonamides; Z91.018 Allergy to other foods; Z79.84 Long term (current) use of oral hypoglycemic drugs; Z79.899 Other long term (current) drug therapy
CPT/HCPCS: 71045; 71275; 80048; 80076; 82550; 82553; 83880; 84436; 84443; 84484; 85025; 85730; 87631; 93005; 93041; 94760; 96365; 96375; 99285; J1938; Q9967

== ENCOUNTER → 2024-11-01 | Outpatient (CLI) | payer OTHER ==
[~2024-11-01] MED LIST changes: +CLOP75TA99 PO
[2024-11-01 10:11] LABS: CALCIUM LEVEL 9.1 MG/DL (8.5-10.1); CARBON DIOXIDE LEVEL 22 MMOL/L (20-31); CHLORIDE LEVEL 106 MMOL/L (98-107); CREATININE FOR GFR 0.85 MG/DL (0.70-1.30); GLOMERULAR FILTRATION RATE > 90.0 (>60); PHOSPHORUS LEVEL 4.0 MG/DL (2.5-4.9); POTASSIUM SERUM 4.1 MMOL/L (3.5-5.1); SODIUM LEVEL 139 MMOL/L (136-145)
== END ==
LOC: M LAB 09:02
PROVIDERS: ATTEND Physician Assistant
DX: I11.0 Hypertensive heart disease with heart failure (principal); I50.22 Chronic systolic (congestive) heart failure; I27.22 Pulmonary hypertension due to left heart disease

== ENCOUNTER → 2024-11-26 | Outpatient (CLI) | payer OTHER ==
[2024-11-26 09:36] LABS: CALCIUM LEVEL 8.9 MG/DL (8.5-10.1); CARBON DIOXIDE LEVEL 25 MMOL/L (20-31); CHLORIDE LEVEL 109 MMOL/L (98-107); CREATININE FOR GFR 0.88 MG/DL (0.70-1.30); GLOMERULAR FILTRATION RATE > 90.0 (>60); PHOSPHORUS LEVEL 3.8 MG/DL (2.5-4.9); POTASSIUM SERUM 3.8 MMOL/L (3.5-5.1); SODIUM LEVEL 143 MMOL/L (136-145)
== END ==
LOC: M LAB 08:30
PROVIDERS: ATTEND Registered Nurse
DX: I50.22 Chronic systolic (congestive) heart failure (principal)

== ENCOUNTER → 2025-02-12 | Outpatient (CLI) | payer OTHER | LOC: M CARPUL 11:22 | PROVIDERS: ATTEND Registered Nurse | DX: I50.22 Chronic systolic (congestive) heart failure (principal) ==